=== PATIENT | female | born 1960 | race Caucasian/White ===

== ENCOUNTER → 2022-10-21 15:12 | Outpatient (CLI) | payer OTHER, SELFPAY ==
--- NOTE | 2022-10-21 15:14 | DI.RAD.S_ITS ---
PROCEDURE: XR SHOULDER LT MIN 2V INDICATIONS: eval LEFT shoulder pain TECHNIQUE: 3 views of the shoulder were acquired. COMPARISON: [facility], MR, UPPER EXT.JOINT WITHOUT CONTRA, 05/08/2008, 14:16. [facility], MR, UP EXT WITH, 05/31/2008, 15:30. FINDINGS: Bones: No fracture or dislocation. No suspicious bony lesions. Severe osteoarthritic changes of the glenohumeral joint. Multiple intra-articular bodies are noted in the inferior glenohumeral joint. There is moderate acromioclavicular joint degeneration. Visualized ribs appear intact. Soft tissues: No suspicious soft tissue calcifications. IMPRESSION: 1. Severe osteoarthritis in left glenohumeral joint. 2. Moderate acromioclavicular osteoarthritis. 3. Multiple intra-articular bodies in the inferior glenohumeral joint. Dictated by: Naomi Castro M.D. on 10/21/2022 at 16:23 Approved by: Naomi Castro M.D. on 10/21/2022 at 16:26
== END ==
PROVIDERS: PCP Registered Nurse Diabetes Educator; Referring Provider Registered Nurse Diabetes Educator; Visit Provider Registered Nurse Diabetes Educator
DX: M19.012 Primary osteoarthritis, left shoulder (principal); M24.012 Loose body in left shoulder; M25.512 Pain in left shoulder
CPT/HCPCS: 73030

== ENCOUNTER → 2022-10-29 08:22 | Outpatient (CLI) | payer OTHER, SELFPAY ==
[2022-10-29 10:35] LABS: Hematocrit 39.5 % (36-46); Hemoglobin 13.3 g/dL (12.0-16.0); Mean Corpuscular HGB Conc 33.7 % (30-36); Mean Corpuscular Hemoglobin 30.6 PG (26-34); Mean Corpuscular Volume 90.9 fL (80-100); Platelet Count 285 X10^3/uL (150-400); Red Blood Cell Count 4.34 X10^6/uL (4.0-5.2); Red Cell Distribution Width 13.4 % (11.6-14.8); White Blood Cell Count 4.5 X10^3/uL (4.5-11.0)
[2022-10-29 10:59] LABS: Alanine Aminotransferase 22 IU/L (<35); Albumin Globulin Ratio 1.5 (1.0-2.8); Alkaline Phosphatase 52 U/L (38-126); Aspartate Aminotransferase 26 IU/L (14-36); BUN Creatinine Ratio 29.7 (6-22); Bilirubin Total 0.6 mg/dL (0.2-1.3); Blood Urea Nitrogen 19 mg/dL (7-17); Calcium 9.2 mg/dL (8.4-10.2); Carbon Dioxide 27 mmol/L (22-32); Chloride 103 mmol/L (98-107); Cholesterol 225 mg/dL (140-199); Estimated Glomerular Filt Rate > 60 mL/min (>60); Globulin 2.6 g/dL (1.7-4.1); Glucose 86 mg/dL (80-110); HDL Cholesterol 55 mg/dL (40-60); HEMOLYSIS < 15 (0-50); LDL Cholesterol Calculated 153 mg/dL (<100); Potassium 4.3 mmol/L (3.4-5.1); Sodium 138 mmol/L (137-145); Total Protein 6.6 g/dL (6.3-8.2); Triglycerides 84 mg/dL (35-150)
[2022-10-29 11:29] LABS: TSH w/ Reflex to FT4 1.04 uIU/mL (0.47-4.68)
== END ==
PROVIDERS: PCP Registered Nurse Diabetes Educator; Referring Provider Registered Nurse Diabetes Educator; Visit Provider Registered Nurse Diabetes Educator
DX: Z00.00 Encounter for general adult medical examination without abnormal findings (principal)
CPT/HCPCS: 36415; 80053; 80061; 84443; 85027

== ENCOUNTER → 2023-02-16 10:18 | Outpatient (CLI) | payer OTHER, SELFPAY ==
[2023-02-16 11:24] LABS: Appearance Urine UA CLEAR; Bilirubin Urine UA NEGATIVE (NEGATIVE); Color Urine UA YELLOW; Glucose Urine UA NEGATIVE (Negative); Ketones Urine UA NEGATIVE (NEGATIVE); Leukocyte Esterase Urine UA NEGATIVE (NEGATIVE); Nitrite Urine UA NEGATIVE (Negative); Occult Blood Urine UA NEGATIVE (Negative); Protein Urine UA NEGATIVE (Negative); Urobilinogen Urine UA 0.2 E.U./dL (0.2)
[2023-02-16 11:34] LABS: Bacteria Urine None Seen; Culture Indicated Urine Cult Not Indicated; RBC Urine None Seen (0-5/HPF); Squamous Epithelial Cell Urine None Seen (0-5/HPF); WBC Urine None Seen (0-5/HPF)
[2023-02-16 12:01] LABS: Add Manual Diff / Slide Review NO; Basophils Absolute Auto 100 /uL (0-100); Eosinophils Absolute Auto 200 /uL (0-450); Hematocrit 36.7 % (36-46); Hemoglobin 13.2 g/dL (12.0-16.0); Lymphocytes Absolute Auto 1300 /uL (1100-4500); Lymphocytes Percent Auto 21.6 % (25-40); Mean Corpuscular HGB Conc 35.9 % (30-36); Mean Corpuscular Hemoglobin 35.1 PG (26-34); Mean Corpuscular Volume 97.7 fL (80-100); Monocytes Absolute Auto 500 /uL (0-900); Monocytes Percent Auto 8.9 % (3-14); Neutrophils Absolute Auto 4100 /uL (1500-7000); Neutrophils Percent Auto 65.5 % (50-75); Platelet Count 342 X10^3/uL (150-400); Red Blood Cell Count 3.76 X10^6/uL (4.0-5.2); Red Cell Distribution Width 12.8 % (11.6-14.8); White Blood Cell Count 6.2 X10^3/uL (4.5-11.0)
[2023-02-16 12:21] LABS: BUN Creatinine Ratio 24.1 (6-22); Blood Urea Nitrogen 14 mg/dL (7-17); Carbon Dioxide 26 mmol/L (22-32); Chloride 104 mmol/L (98-107); Estimated Glomerular Filt Rate > 60 mL/min (>60); Glucose 79 mg/dL (80-110); HEMOLYSIS < 15 (0-50); Potassium 3.7 mmol/L (3.4-5.1); Sodium 137 mmol/L (137-145)
== END ==
PROVIDERS: PCP Registered Nurse Diabetes Educator; Referring Provider Orthopaedic Surgery; Visit Provider Orthopaedic Surgery
DX: Z01.818 Encounter for other preprocedural examination (principal); Z01.812 Encounter for preprocedural laboratory examination; N39.0 Urinary tract infection, site not specified
CPT/HCPCS: 80048; 81001; 85025; 93005

== ENCOUNTER → 2023-02-22 15:24 | Outpatient (CLI) | payer OTHER, SELFPAY ==
--- NOTE | 2023-02-22 | DI.CT.S_ITS ---
PROCEDURE: CT UE LT WO CON INDICATIONS: PRIMARY OSTEOARTHRITIS- LEFT SHOULDER TECHNIQUE: Noncontrast 1-1.5 mm thick sections acquired from the acromioclavicular joint to the inferior scapula, with coronal and sagittal reformatting. COMPARISON: None. FINDINGS: Image quality: Excellent. Bones: Moderate acromioclavicular joint osteoarthritic changes are seen with joint space narrowing, subchondral sclerosis and downward osteophyte formation depressing the musculotendinous junction of supraspinatus. Severe glenohumeral joint osteoarthritic changes are seen with near complete loss of joint space, extensive subchondral sclerosis and prominent marginal osteophyte formation. No acute fracture or dislocation. No suspicious bony lesions. The visualized left upper ribs are intact. Soft tissues: There is no gross full-thickness rotator cuff tendon rupture. Moderate supraspinatus muscle atrophy is seen on sagittal images. Moderate joint effusion and subacromial subdeltoid bursal fluid is seen. Numerous partially calcified loose bodies are noted within the glenohumeral joint space and subacromial subdeltoid bursa measures up to 1.6 cm in size series 3, image 69. IMPRESSION: 1. Severe glenohumeral joint osteoarthritis and moderate acromioclavicular joint osteoarthritis. No acute shoulder fracture or dislocation. No suspicious bony lesions. 2. Moderate supraspinatus muscle atrophy. No full-thickness rotator cuff tendon rupture. Moderate joint effusion and subacromial subdeltoid bursal fluid with suggestion of partially calcified intra-articular loose bodies as above. Dictated by: Severiano Bianchi M.D. on 02/22/2023 at 17:26 Approved by: Severiano Bianchi M.D. on 02/22/2023 at 17:29
== END ==
LOC: CT 15:24
PROVIDERS: PCP Registered Nurse Diabetes Educator; Referring Provider Orthopaedic Surgery; Visit Provider Orthopaedic Surgery
DX: M19.012 Primary osteoarthritis, left shoulder (principal); M62.512 Muscle wasting and atrophy, not elsewhere classified, left shoulder; M25.412 Effusion, left shoulder
CPT/HCPCS: 73200

== ENCOUNTER 2023-06-16 11:27 | Day surgery (SDC) | payer MEDICARE, OTHER, SELFPAY ==
[2023-04-27 13:42] VITALS: BMI 23.7
[2023-06-16] VITALS (7 sets, daily range): BP systolic 110–127; BP diastolic 62–78; PULSE 72–89; RESP 16–22; TEMP 36.2–36.6; O2SAT 92–98; BMI 23.7
--- NOTE | 2023-06-16 08:32 | DI.RAD.S_ITS ---
PROCEDURE: XR SHOULDER LT 1V INDICATIONS: s/p Reverse TSA TECHNIQUE: 1 views of the shoulder were acquired. COMPARISON: [facility], DAVID, XR SHOULDER LT MIN 2V, 10/21/2022, 15:20. FINDINGS: Bones: Expected postoperative appearance of left shoulder arthroplasty. Hardware appears intact.. No suspicious bony lesions. Visualized ribs appear intact. Soft tissues: Overlying postsurgical changes. IMPRESSION: Expected postoperative appearance of reverse left shoulder arthroplasty. Dictated by: Donte Flowers M.D. on 06/16/2023 at 16:41 Approved by: Donte Flowers M.D. on 06/16/2023 at 16:41
--- NOTE | 2023-06-16 12:23 | P.HP_ITS ---
History of Present Illness History of Present Illness Date Patient Seen: 06/16/23 Time Patient Seen: 12:24 Chief complaint: OPB Narrative: 63-year-old female with left glenohumeral arthritis and a dysplastic glenoid, here for reverse total shoulder arthroplasty [facility], [facility] Medical History (Updated 04/27/23 @ 14:12 by Ely Lai RN) History of COVID-19 (02/2021) Anesthesia complication Arthritis Primary osteoarthritis, left shoulder Surgical History (Updated 04/27/23 @ 14:07 by Ely Lai RN) Hx of arthroscopy of left knee Hx of arthroscopy of right knee Hx of shoulder surgery (~2010) Hx of tonsillectomy Hx of tubal ligation History of total left knee replacement (08/2016) Social History household members: spouse and children Smoking Status: Never smoker alcohol intake: former Meds Home Medications and Allergies Home Medications Medication Instructions Recorded Confirmed Type ibuprofen 200 mg tablet (Motrin IB) 800 mg PO BID 04/27/23 06/16/23 History Allergies Allergy/AdvReac Type Severity Reaction Status Date / Time Penicillins Allergy Rash - Verified 06/16/23 11:41 childhood Review of Systems Review of Systems ROS: Yes All systems reviewed with the patient and are negative except as ot herwise documented Exam Vital Signs (past 8 hours): - 06/16/23 11:56 Temperature 97.2 F L Pulse Rate 87 Respiratory Rate 16 Blood Pressure 127/78 Pulse Oximetry 98 Oxygen Delivery Method Room Air Oxygen Delivery Method Room Air Narrative Exam Narrative: HEENT: Head atraumatic eyes anicteric moist mucous membranes Cardiovascular: Palpable peripheral pulses extremities are warm and well perfused Respiratory: Breathing comfortably on room air Psychiatric: Appropriate mood and affect Neuro: No acute deficits Musculoskeletal: Forward elevation to 90?, external rotation 10, internal rotation belt line. Skin intact. Sensation intact to light touch in median, radial, ulnar, axillary nerve distributions. Assessment & Plan Assessment & Plan narrative: Assessment: Left glenohumeral arthritis with a dysplastic glenoid Plan. We will plan for a reverse total shoulder arthroplasty today. We do have a custom designed patient matched implant for her today. If for some reason this does not work or we do not get secure fixation, we will plan on reverting to a hemiarthroplasty. Risks and benefits of surgery were discussed again including the risk of infection, damage to internal structures, bleeding, nerve injury, instability, need for revision surgery, blood clots, anesthesia and . No guarantees were made regarding outcomes. Patient expressed understanding and accepted these risks and wished to go forward with surgery and consent was signed.
[2023-06-16] MEDS: ACETAMINOPHEN 325 MG TABLET 975 MG PO (12:51)
--- NOTE | 2023-06-16 13:03 | SUR.OPER ---
Beach chair on padded OR bed. Head on gel donut secured with tape over gauze. Non-operative arm secured <90 degrees abduction on padded arm board. Pillow under knees. Safety belt at thigh. Cloth tape over blanket over lower legs.
[2023-06-16] MEDS: CEFAZOLIN 2 GM/100 ML PREMIX 100 ML IV (13:34)
[2023-06-16] MEDS: TRANEXAMIC ACID 1,000 MG VIAL 1000 MG INJ (13:35)
[2023-06-16] MEDS: BUPIVACAINE 0.25% (PF) 30 ML, EPINEPHrine 0.15 MG INJ (13:57)
--- NOTE | 2023-06-16 15:50 | P.OP_ITS ---
Operative Date/Time/Diagnoses Date of procedure: 06/16/23 Time of procedure: 15:50 Pre-op diagnosis: Left glenoid humeral arthritis with dysplastic glenoid Post-op diagnosis: same Procedure & Clinicians Procedure: Left reverse total shoulder arthroplasty with custom patient matched implant Same procedure as scheduled: Yes Indications: Indications: This is a 63 yo Female who has rotator cuff arthropathy. Symptoms have been present for years, insidious onset. Patient has failed a reasonable attempt at conservative therapy. After extensive discussion in clinic, they wished to go forward with surgery. Risks and benefits were described including the risk of infection, bleeding, damage to internal structures including nerves. We also discussed the risk of failure of surgery and the need for revision surgery as well as the risk of anesthesia. The patient expressed understanding with these risks and wished to go forward with surgery. Surgeon: Masoud Calzada Medical Care Administrator: Sweta Braden Anesthesia Type: General Operative Notes Findings: Findings: Osteoarthritis of the glenoid and humeral head as well as a defient rotator cuff as noted on preoperative imaging and under direct visualization Closure Type: primary Specimen(s): none sent Prosthetic devices, grafts, tissues, transplants, or devices: Tornier implants Base plate: Custom, patient matched implant Glenosphere: Standard 36 mm Stem: Perform 2+ Poly: +0 concentric Estimated Blood Loss (mL): 50 Procedure in detail: Patient was seen in the preoperative holding unit. The correct left shoulder was identified and marked with my initials. Again we discussed the risks and benefits of surgery and they wished to go forward with surgery. The patient was brought back to the operating room and placed supine on the operating table. Smooth endotracheal intubation was performed by anesthesia. All prominences were padded and they were placed into the beach chair position. Intravenous antibiotics were given. The left shoulder was then prepped with the standard sterile preparation and draping. A time-out was then performed in my initials were again identified on the correct shoulder. 1 g of IV tranexamic acid was given. A standard deltopectoral incision was made. Skin flaps were made. The cephalic vein was identified and retracted laterally. This was protected throughout the remainder of the case. Sharp dissection was made along the deltoid, subacromial and subcoracoid space to release adhesions. The conjoined tendon was identified and the axillary nerve was palpated and continuous using the tug test. It was protected throughout the remainder of the case. A brown retractor was placed underneath the deltoid muscle and a darach retractor underneath the conjoint tendon. The subscapularis muscle was ntoed to be are. The anterior circumflex artery and associated veins on the lower border of the subscapularis were identified and tied off using 0-Vicryl. The biceps tendon was identified in the bicipital groove. This was released from its sheath, and taken from its origin on the glenoid and tied into the pectoralis tendon for a solid tenodesis. We then began a subscapularis peel. The subscapularis was tagged with an Ethibond suture. A 360 degree circumferential release of the subscapularis was performed with protection of the axillary nerve. The coracohumeral ligament was released at the base of the coracoid. The shoulder was then dislocated. Osteophytes were removed using combination of rongeur and osteotome. The rotator cuff was noted to be insufficient. An intramedullary guide was used set at version of 20?. Using an oscillating saw a conservative humeral head cut was made. Impaction reamers were reamed up to a size 2 stem with a built-in angle 135?. A neck protector was placed. Attention was then turned to the glenoid. After retracting the humeral head posteriorly a circumferential release was performed of the capsule with protection of the axillary nerve. The labrum was then released starting at the biceps anchor and going around the rim a small amount of triceps was released from the inferior glenoid. A center guide pin was then placed using the guide, followed by Reamer. After adequate cartilage was removed the post hole was drilled and the custom implant was then impacted. The peripheral screws were then sequentially drilled, measured, and placed. A 36 standard glenosphere was then selected and screwed into place onto the base plate. Turning back to the humerus, the humeral head was delivered and trialed with a 0 concentric. The arm was taken through range of motion and this was felt to be stable. The trial was then removed and a dilute Betadine wash was then performed with 1 L of sterile saline. Before placing the final implant, drill holes were made in the bicipital groove for the subscapularis repair, and sutures were passed through the drill holes. The final stem was then impacted into the humerus. The shoulder was then reduced and again brought through range of motion and was felt to be stable. The subscapularis was then repaired using a modified racking hitch with nice loupes. The deltopectoral interval was then closed with #2 Ethibond. The skin was closed with 2-0 vicryl and 3-0 Monocryl followed by Aquacel dressing. Patient was awoken from anesthesia and brought back to the postoperative recovery unit without issue. They were placed into a sling. Assisting participation: This operation could not have been safely performed (without compromising the technical results or length of the procedure) without the assistance of a skilled surgical technician. The surgical technician was medically necessary for proper positioning, retraction and manipulation of instruments, proper exposure, graft prep, and manipulation of tissue. Complications: none Post-operative Condition: stable Disposition: PACU Plan for aftercare: Postoperative instructions: Sling to remain on for 6 weeks. No external rotation past neutral for 6 weeks. Okay for the sling to come off for shower. Okay to shower over the Aquacel dressing. If any water gets underneath the dressing, remove the dressing. First postoperative visit in 2 weeks.
== END 2023-06-16 16:05 | disposition home or self-care (01) ==
LOC: OR 11:27 → AC 11:29
PROVIDERS: PCP Registered Nurse Diabetes Educator; Referring Provider Orthopaedic Surgery; Visit Provider Orthopaedic Surgery
PROC: (CPT 23472; principal; 2023-06-16 12:45)
DX: M19.012 Primary osteoarthritis, left shoulder (principal); G89.18 Other acute postprocedural pain
CPT/HCPCS: 23472; 64415; 73020; C1776; J0171; J0690; J2405; J2704; J3010

== ENCOUNTER → 2023-11-25 15:19 | Outpatient (CLI) | payer MEDICARE, OTHER, SELFPAY ==
--- NOTE | 2023-11-25 15:20 | DI.MG.S_ITS ---
BILATERAL DIGITAL SCREENING MAMMOGRAM 3D/2D WITH CAD: 11/25/2023 CLINICAL: Routine screening. Comparison is made to exam dated: 03/08/2022 mammogram - [facility]. There are scattered areas of fibroglandular density (category b / 25%-50% glandular tissue). Current study was also evaluated with a Computer Aided Detection (CAD) system. There is a new oval equal density asymmetry in the left breast middle depth medial region seen on the craniocaudal view only. No other significant masses, calcifications, or other findings are seen in either breast. IMPRESSION: INCOMPLETE: NEED ADDITIONAL IMAGING EVALUATION The new oval equal density asymmetry in the left breast is indeterminate. Additional views with possible ultrasound are recommended. Based on the Tyrer Cuzick model (a risk assessment model) the patient's lifetime risk is 7.0% and her 10 year risk is 3.4%. According to the ACR, ACS, and NCCN guidelines, an annual breast MRI exam along with mammogram is recommended if the patient's lifetime risk is 20% or greater. This exam was interpreted at Station ID: [id number]. NOTE: For mammograms, a report in lay terms will be sent to the patient. Approximately 15% of breast malignancies will not be visualized mammographically. In the management of a palpable breast mass, a negative mammogram must not discourage biopsy of a clinically suspicious lesion. Electronically Signed By: Gregory Knapp M.D. aty/:11/30/2023 15:02:28 letter sent: Additional Imaging Needed ACR BI-RADS Category 0: Incomplete: Need Additional Imaging Evaluation
== END ==
LOC: MAMMO 15:19
PROVIDERS: PCP Registered Nurse Diabetes Educator; Referring Provider Registered Nurse Diabetes Educator; Visit Provider Registered Nurse Diabetes Educator
DX: Z12.31 Encounter for screening mammogram for malignant neoplasm of breast (principal)
CPT/HCPCS: 77063; 77067

== ENCOUNTER → 2023-12-08 08:37 | Outpatient (CLI) | payer MEDICARE, OTHER, SELFPAY ==
--- NOTE | 2023-12-08 | DI.MG.S_ITS ---
UNILATERAL LEFT DIGITAL DIAGNOSTIC MAMMOGRAM 3D/2D WITH ADDITIONAL VIEWS: 12/08/2023 CLINICAL: Additional evaluation requested from prior study. Comparison is made to exams dated: 11/25/2023 mammogram - [facility] and 03/08/2022 mammogram - [facility]. There are scattered areas of fibroglandular density (category b / 25%-50% glandular tissue). There is a 0.6 cm oval equal density asymmetry in the left breast middle depth medial region seen on the craniocaudal view only. This is less prominent. No other significant masses or calcifications are seen in the breast. IMPRESSION: INCOMPLETE: NEED ADDITIONAL IMAGING EVALUATION The 0.6 cm oval equal density asymmetry in the left breast is indeterminate. An ultrasound is recommended for further evaluation and is scheduled to immediately follow this examination. Based on the Tyrer Cuzick model (a risk assessment model) the patient's lifetime risk is 7.0% and her 10 year risk is 3.4%. According to the ACR, ACS, and NCCN guidelines, an annual breast MRI exam along with mammogram is recommended if the patient's lifetime risk is 20% or greater. This exam was interpreted at Station ID: [id number]. NOTE: For mammograms, a report in lay terms will be sent to the patient. Approximately 15% of breast malignancies will not be visualized mammographically. In the management of a palpable breast mass, a negative mammogram must not discourage biopsy of a clinically suspicious lesion. Electronically Signed By: Gregory Knapp M.D. aty/:12/08/2023 17:19:36 letter sent: Additional Imaging Needed ACR BI-RADS Category 0: Incomplete: Need Additional Imaging Evaluation
--- NOTE | 2023-12-08 08:38 | DI.US.S_ITS ---
PROCEDURE: US BREAST LT LIMITED COMPARISON: None. INDICATIONS: add view left breast FINDINGS: IMPRESSION: Dictated by: Gregory Knapp M.D. on 12/08/2023 at 17:18 Approved by: Gregory Knapp M.D. on 12/08/2023 at 17:22
--- NOTE | 2023-12-08 09:36 | DI.US.S_ITS ---
Patient Name: YUMIKO DIMAS date: 1960 Sex: F Attending Physician: Gilbert Indications: Date: 12/08/2023 17:22 At the request of: FLAVIA HART Procedure: US breast LT limited LIMITED ULTRASOUND OF LEFT BREAST AND AXILLA: 12/08/2023 CLINICAL: Patient returns today to evaluate a focal asymmetry in the left breast. Comparison is made to exams dated: 12/08/2023 mammogram, 11/25/2023 mammogram - [facility], and 03/08/2022 mammogram - [facility]. Color flow and real-time ultrasound of the left breast 8-10 o'clock, and axilla regions were performed. Francis scale images of the real-time examination were reviewed. There is a 0.4 cm x 0.7 cm x 0.4 cm oval mass with an indistinct and angular margins in the left breast at 9 o'clock posterior depth 6 cm from the nipple. This likely correlates with mammography findings. Color flow imaging demonstrates that there is no vascularity present. No significant abnormalities were seen sonographically in the left axilla. IMPRESSION: SUSPICIOUS The 0.4 cm x 0.7 cm x 0.4 cm oval mass in the left breast is suspicious of malignancy. An ultrasound guided biopsy is recommended. No sonographic abnormalities identified in the axilla. No axillary adenopathy. Findings and recommendations were discussed telephonically with the patient by Dr. Knapp during today's examination. This exam was interpreted at Station ID: [id number]. Electronically Signed By: Gregory Knapp M.D. aty/:12/08/2023 17:22:35 Continued Report - Page 2 of 2 Patient Name: YUMIKO DIMAS date: 1960 Sex: F Attending Physician: Gilbert Indications: Date: 12/08/2023 17:22 At the request of: FLAVIA HART Procedure: US breast LT limited letter sent: Biopsy Required ACR BI-RADS Category 4: Suspicious
== END ==
PROVIDERS: PCP Registered Nurse Diabetes Educator; Referring Provider Registered Nurse Diabetes Educator; Visit Provider Registered Nurse Diabetes Educator
DX: R92.8 Other abnormal and inconclusive findings on diagnostic imaging of breast (principal); N63.25 Unspecified lump in the left breast, overlapping quadrants
CPT/HCPCS: 76642; 77065; G0279

== ENCOUNTER → 2023-12-28 10:01 | Outpatient (CLI) | payer MEDICARE, OTHER, SELFPAY ==
--- NOTE | 2023-12-28 | DI.US.S_ITS ---
ULTRASOUND GUIDED BIOPSY LEFT BREAST WITH MARKING DEVICE INSERTED AND POST MAMMOGRAPHIC IMAGIN12/28/2023 CLINICAL: Left breast mass. PATIENT CONSENT: Risks (minor bleeding, infection, vasovagal reaction and repeat procedure), benefits and alternatives were explained to the patient and written informed consent was obtained. Correlation is made to exams dated: 12/28/2023 mammogram, 12/08/2023 ultrasound, 12/08/2023 mammogram, 11/25/2023 mammogram - [facility], and 03/08/2022 mammogram - [facility]. An ultrasound guided biopsy using real-time ultrasound was performed for the 0.7 cm x 0.4 cm x 0.4 cm indistinct lobulated mass located in the left breast at 9 o'clock posterior depth 6 cm from the nipple. This was described on the previous ultrasound report. The skin was prepped in the usual manner. Local anesthetic was administered to the access site. A small incision was made in the breast. The abnormality was approached from the medial aspect. A 16 gauge biopsy needle was placed adjacent to the abnormality under ultrasound guidance. Once the needle was documented to be in the correct location, five specimens were obtained using a BARD biopsy device. The patient received additional local anesthetic during the procedure. A clip was inserted into the biopsy cavity. A sterile dressing was applied to the access site. Post procedure mammographic imaging demonstrates the location device 2mm inferior from the geometric center of the targeted area. The specimens were sent to the laboratory for pathological analysis. IMPRESSION: ULTRASOUND GUIDED BIOPSY MALIGNANT Ultrasound guided biopsy of the 0.7 cm x 0.4 cm x 0.4 cm mass in the left breast at 9 o'clock posterior depth 6 cm from the nipple was successful. 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 Pathology results are concordant with imaging findings. A surgical/oncologic consultation is recommended. This exam was interpreted at Station ID: [id number]. Vince Knapp M.D. sd,aty/:01/04/2024 14:00:16
--- NOTE | 2023-12-28 10:03 | DI.MG.S_ITS ---
UNILATERAL LEFT DIGITAL DIAGNOSTIC MAMMOGRAM 3D/2D - LEFT BREAST POST-PROCEDURE IMAGING FOR MARKER PLACEMENT: 12/28/2023 CLINICAL: Post left breast ultrasound biopsy, clip placment imaging. Comparison is made to exams dated: 12/08/2023 mammogram, 11/25/2023 mammogram - [facility], and 03/08/2022 mammogram - [facility]. There are scattered areas of fibroglandular density (category b / 25%-50% glandular tissue). There is a marker clip in the appropriate position in the left breast posterior depth medial region seen on both views. This marker clip placement is 2 mm inferior to the biopsy site. This correlates with ultrasound findings. IMPRESSION: POST PROCEDURE MAMMOGRAM FOR MARKER PLACEMENT There was a successful marker clip placement in the left breast posterior depth medial region. This exam was interpreted at Station ID: [id number]. NOTE: For mammograms, a report in lay terms will be sent to the patient. Approximately 15% of breast malignancies will not be visualized mammographically. In the management of a palpable breast mass, a negative mammogram must not discourage biopsy of a clinically suspicious lesion. Electronically Signed By: Vince Avendano M.D. sd/:01/01/2024 15:45:00 ACR BI-RADS Category Post-Procedure Mammogram for Marker Placement
--- NOTE | 2023-12-28 11:31 | PATH_ITS ---
[facility] Accession Number: [id number] No. of containers..01 Tissue . 01 Material submitted: . breast - LT BREAST 09:00 6CMFN . 01 Diagnosis: LEFT BREAST 9 O'CLOCK 6 CM FROM NIPPLE: Invasive carcinoma of the breast. . Specimen Procedure: Needle biopsy. Specimen laterality: Left. . Histologic type: Invasive mammary carcinoma; please see comment. Histologic grade: Glandular (acinar)/tubular differentiation: Score 2/3. Nuclear pleomorphism: Score 2/3. Mitotic rate: Score 1/3. Overall grade: Grade 1 (score 5/9). . Carcinoma in situ: Not definitely identified. . Predictive marker immunohistochemical studies are performed on block A1 with the invasive carcinoma showing the following results: . Estrogen receptor (SP1): Strongly positive (91-100% of tumor nuclei). Progesterone receptor (1E2): Strongly positive (91-100% of tumor nuclei). Her2 (4B5): Negative (1+). . . Internal controls for ER and CT are positive. Internal controls for ER and CT are negative; false negative results cannot be excluded. Internal controls for ER and CT are not present; false negative results cannot be excluded. Cold ischemic time is not provided. The scoring criteria for breast biomarkers by immunohistochemistry is based on the ASCO/CAP guidelines (Lucien AC et al, J Clin Oncol: 2018 Aug 23;36(20):9047-3777 and Jocelyn POLLARD et al, Arch Pathol Lab Med: 2009;134(6):907-22). Deparaffinized sections of formalin fixed tissue (along with appropriate positive controls) are incubated with the above antibody(s). Using the automated [place] stainer, tissue is incubated with the designated antibody which is then localized by a non-biotin, dual polymer detection system. The external controls are reviewed for appropriate reactivity and found to be adequate. Results on the target cell population are indicated above. These tests have not been validated on decalcified tissue. This test was developed and the performance characteristics were validated by [employer]. It has not been cleared or approved by the U.S. Food and Drug Administration. [facility] 01/02/2024 1224 Local . 01 Comment: Due to the weak, diminished expression of e-cadherin, the differential diagnosis includes a low grade ductal adenocarcinoma and a tubulolobular carcinoma. . The tumor sample is small. If the lesion appears larger (i.e. by imaging) biomarkers could be repeated on the excised speciman. . Dr. Lucy Wallis discussed results with Mary Weber R.N. (of Dr. Hunt's care team) on 01/02/2024 at approximately 11:59 a.m. . As part of routine quality control tech, this case was also reviewed by Dr. Soha Zamora (Julie), who agrees with the interpretation. . 01 Electronically signed: . Lucy Wallis MD, Pathologist NPI- [id number] . 01 Gross description: . Received in formalin with two patient identifiers and left breast 9 o'clock, are multiple de [place] santos-brown soft tissue fragments aggregating to 1.5 x 0.5 x 0.2 cm. Filtered and submitted entirely in A1. . Specimen was removed on 12/28/2023 at 1132 hours, time in formalin not given. Cold ischemic time cannot be calculated. Total fixation time is approximately 34 hours. ([id number]) /MRV 12/29/2023 1316 Local . 01 Microscopic: . Immunohistochemical stains are performed to help evaluate features. The controls stained with appropriate reactivity. . RESULTS: Block A1 SAV-3: Strongly positive, consistent with breast origin. E-cadherin: Diminished staining; inconclusive. SMA: Absent in regions of interest, consistent with invasive tumor. P63: Absent in regions of interest, consistent with invasive tumor. CK5/6: Retained staining; does not support presence of carcinoma in situ. . . * This test was developed and the performance characteristics were validated by [employer]. It has not been cleared or approved by the U.S. Food and Drug Administration. . 01 Pathologist provided ICD-10: N63.20, C50.912 . 01 CPT . 705825, T41053, V71510, 958923, 142533, [id number] Specimen Comment: A courtesy copy of this report has been sent to [facility] Pathology Performed at: 01 [facility] [address] [address], [place], [place] [id number] MD Francisco Jarrell MD Phone: [phone]
== END ==
LOC: US 10:02
PROVIDERS: PCP Registered Nurse Diabetes Educator; Referring Provider Registered Nurse Diabetes Educator; Visit Provider Registered Nurse Diabetes Educator
DX: C50.812 Malignant neoplasm of overlapping sites of left female breast (principal); M19.012 Primary osteoarthritis, left shoulder; Z17.0 Estrogen receptor positive status [ER+]
CPT/HCPCS: 19083; 77065